=== PATIENT | female | born 1995 | race Caucasian/White ===

== ENCOUNTER 2018-03-01 19:44 | Emergency (ER) | payer SELFPAY ==
[~2018-03-01] VITALS: Ht 160 cm; Wt 83.9 kg
[2018-03-01 19:44] VITALS: BP 125/63
[~2018-03-01 19:44] MED LIST: AMOXICILLIN500 MG PO; BACTRIM DS 8001 TA1 PO; COLACE50 MG PO; IRON325 M1 PO; MACROBID100 M1 PO; PRENTAL 1 PLUS1 TAB PO; TYLENOL PM 5001 CA1 PO; TYLENOL PM1 CAP PO; ZANTAC150 MG PO
[2018-03-01] MEDS ORDERED: PREDNISONE10 MG PO (20:06)
[2018-03-01] MEDS ORDERED: CLARITIN10 MG PO (20:06)
[2018-03-01] MEDS ORDERED: FLONASE ALLERG9.9 ML NAS (20:06)
[2018-03-01 20:14] LABS: BILIRUBIN NEGATIVE (NEGATIVE); BLOOD NEGATIVE (NEGATIVE); CLARITY CLOUDY (CLEAR); COLOR YELLOW (YELLOW); GLUCOSE NEGATIVE (NEGATIVE); KETONE NEGATIVE (NEGATIVE); LEUKO ESTERASE 2+ (NEGATIVE); NITRITE NEGATIVE (NEGATIVE); SPECIFIC GRAVITY 1.015 (1.005-1.030)
[2018-03-01 20:27] LABS: BACTERIA 1+; EPITHELIAL CELLS TNTC; WBC 21-30 wbc/hpf (0-5)
[2018-03-01] MEDS ORDERED: SEPTDS PO (20:29)
== END 2018-03-01 20:33 | disposition home or self-care (01) ==
LOC: ED 19:44
PROVIDERS: Nurse Practitioner Family
DX: N39.0 Urinary tract infection, site not specified (principal); R03.0 Elevated blood-pressure reading, without diagnosis of hypertension; J02.9 Acute pharyngitis, unspecified; Z98.890 Other specified postprocedural states